=== PATIENT | female | born 1940 | race Caucasian/White ===

== ENCOUNTER 2017-03-05 00:27 | Emergency (ER) | payer MEDICARE, OTHER ==
[~2017-03-05] VITALS: Ht 165.1 cm; Wt 99.8 kg
[~2017-03-05 00:27] MED LIST: BUSPIRONE HCL15 MG PO; FLOVENT HFA10.6 GM INH; HYDROCHLOROTHIA25 MG PO; LANTUS100 UNITS/ SUB-Q; LEXAPRO10 MG PO; LIPITOR40 MG PO; LISINOPRIL20 MG PO; LOPID600 MG PO; METFORMIN HCL500 MG PO; NITROGLYCERIN0.4 MG SL; NOVOLOG FL100 UNIT/1 SUB-Q; PEPCID40 MG PO; PLAVIX75 MG PO; SYNTHROID75 MCG PO; TRAMADOL HCL50 MG PO; TYLENOL EXTRA500 MG PO; VERAPAMIL HCL120 MG PO
[2017-03-05] MEDS ORDERED: AMLODIPINE BESY10 MG PO (00:54)
[2017-03-05] MEDS ORDERED: LEVOTHYROXINE75 MCG PO (00:54)
[2017-03-05] MEDS ORDERED: SYMBICORT 16010.2 GM INH (00:55)
[2017-03-05] MEDS ORDERED: VENTOLIN HFA18 GM INH (00:56)
[2017-03-05] MEDS ORDERED: FAMOTIDINE40 MG PO (00:57)
[2017-03-05] MEDS ORDERED: MONTELUKAST SOD10 MG PO (00:57)
--- NOTE | 2017-03-05 16:01 | EKG ---
[facility] [address] [facility] [place] [address] Signed Sinus rhythm with premature supraventricular complexes and with occasional premature ventricular complexes and fusion complexes Right bundle branch block Left anterior fascicular block Bifascicular block Septal infarct , age undetermined Abnormal ECG No previous ECGs available Confirmed by GEOVANNI LORA MD ([id number]) on 03/05/2017 4:01:54 PM Electronically Signed By: GEOVANNI LORA MD 03/05/17 1601 PATIENT NAME: SAMMI SANCHEZJOESPH Causey Electrocardiogram DATE OF : 36 PHYSICIAN: GEOVANNI LORA MD REPORT #: [id number] REPORT IS CONFIDENTIAL AND NOT TO BE RELEASED WITHOUT AUTHORIZATION
== END 2017-03-05 02:08 | disposition home or self-care (01) ==
LOC: ED 00:27
DX: R07.89 Other chest pain (principal); E11.9 Type 2 diabetes mellitus without complications; J44.9 Chronic obstructive pulmonary disease, unspecified; I10 Essential (primary) hypertension; Z85.3 Personal history of malignant neoplasm of breast; Z95.5 Presence of coronary angioplasty implant and graft; F17.200 Nicotine dependence, unspecified, uncomplicated; Z90.12 Acquired absence of left breast and nipple; Z90.710 Acquired absence of both cervix and uterus; Z90.49 Acquired absence of other specified parts of digestive tract; Z90.89 Acquired absence of other organs; Z91.09 Other allergy status, other than to drugs and biological substances; Z88.8 Allergy status to other drugs, medicaments and biological substances; Z88.5 Allergy status to narcotic agent; Z88.6 Allergy status to analgesic agent; Z79.4 Long term (current) use of insulin; Z79.899 Other long term (current) drug therapy
CPT/HCPCS: 71010; 80053; 84484; 85025; 93005; 93010; 99284

== ENCOUNTER 2019-02-05 06:46 | Emergency (ER) | payer MEDICARE, OTHER ==
[~2019-02-05] VITALS: Ht 165.1 cm; Wt 99.8 kg
[~2019-02-05 06:46] MED LIST changes: +AMLODIPINE BESY10 MG PO; +FAMOTIDINE40 MG PO; +LEVOTHYROXINE75 MCG PO; +MONTELUKAST SOD10 MG PO; +SYMBICORT 16010.2 GM INH; +VENTOLIN HFA18 GM INH
[2019-02-05] MEDS ORDERED: OXYCODON-ACETA1 EAC2 PO (07:33)
[2019-02-05] MEDS ORDERED: POTASSIUM GLUC500 MG PO (07:33)
[2019-02-05] MEDS ORDERED: MONTELUKAST SOD10 MG PO (07:34)
[2019-02-05] MEDS ORDERED: BIOTIN10000 MC1 PO (07:34)
[2019-02-05] MEDS ORDERED: PREDNISONE20 MG PO (10:42)
[2019-02-05] MEDS ORDERED: ALBUTEROL2.5 MG/3 M INH (10:42)
== END 2019-02-05 13:08 | disposition home or self-care (01) ==
LOC: ED 06:46
DX: J44.1 Chronic obstructive pulmonary disease with (acute) exacerbation (principal); I10 Essential (primary) hypertension; E11.9 Type 2 diabetes mellitus without complications; F17.200 Nicotine dependence, unspecified, uncomplicated; Z85.3 Personal history of malignant neoplasm of breast; Z91.041 Radiographic dye allergy status; Z88.5 Allergy status to narcotic agent; Z88.6 Allergy status to analgesic agent; Z88.8 Allergy status to other drugs, medicaments and biological substances; Z79.4 Long term (current) use of insulin; Z79.899 Other long term (current) drug therapy; Z79.02 Long term (current) use of antithrombotics/antiplatelets
CPT/HCPCS: 71045; 80053; 81001; 83880; 84484; 85025; 94640; 94644; 94660; 96374; 99285-25; 99406; J2930